=== PATIENT | female | born 1935 | race Caucasian/White ===

== ENCOUNTER 2023-12-25 13:51 | Inpatient (IN) | payer MEDICARE, OTHER ==
[2023-12-25] VITALS (22 sets, daily range): BP systolic 129–180; BP diastolic 82–101; PULSE 109–137; RESP 18–34; TEMP 99.1–100.7; O2SAT 95–100
[~2023-12-25] VITALS: Ht 162.6 cm; Wt 65.8 kg
[~2023-12-25 13:51] MED LIST: ADVAIR 250-501 EACH INH; ALENDRONATE SOD70 MG PO; ASA81 MG PO; CALTRATE-600 W1 EACH PO; PRESERVISION A1 EACH PO; SPIREVA INH; Z.0.AMLODIPINE BESY1 PO; Z.0.ATENOLOL50 MG PO; Z.0.CRESTOR5 MG PO; Z.2.METFORMIN HCL500 PO; Z.2.TRIAMTERENE-HC1 PO
[2023-12-25 14:28] LABS: BASOPHILS % 0.3 % (0.0-1.0); EOSINOPHILS % 0.1 % (0.0-6.0); HEMATOCRIT 33.6 % (34.2-44.1); HEMOGLOBIN 10.1 g/dL (12.0-16.0); LYMPHOCYTES # (AUTO) 1.3 (1.0-3.2); LYMPHOCYTES % 13.5 % (18.0-39.1); MEAN CORPUSCULAR HEMOGLOBIN 26.7 pg (28-32); MEAN CORPUSCULAR HGB CONC 30.1 g/dL (31-35); MEAN CORPUSCULAR VOLUME 88.9 fL (81-99); MONOCYTES # (AUTO) 0.7 (0.2-0.8); MONOCYTES % 7.9 % (4.4-11.3); NEUTROPHILS # (AUTO) 7.3 (2.1-6.9); NEUTROPHILS % 77.9 % (38.7-80.0); PLATELET COUNT 247 x10e3/uL (140-360); RED BLOOD COUNT 3.78 x10e6/uL (3.6-5.1); RED CELL DISTRIBUTION WIDTH 16.4 % (11.7-14.4)
[2023-12-25 14:36] LABS: INR 1.09; PROTHROMBIN TIME 14.7 seconds (11.9-14.5)
[2023-12-25] MEDS: SODIUM CHLORIDE 0.9% 1000ML 1,000 ML IV STA (14:36)
[2023-12-25 14:37] LABS: PARTIAL THROMBOPLASTIN TIME 29.3 seconds (23.8-35.5)
[2023-12-25 14:44] LABS: ALBUMIN 2.8 g/dL (3.5-5.0); ALBUMIN/GLOBULIN RATIO 0.5 (0.8-2.0); ANION GAP 16.1 mmol/L (8-16); BILIRUBIN,TOTAL 0.4 mg/dL (0.2-1.2); CALCIUM 9.4 mg/dL (8.4-10.2); CREATININE, SERUM 1.12 mg/dL (0.57-1.11); MAGNESIUM 1.8 MG/DL (1.3-2.1); POTASSIUM 4.1 mmol/L (3.5-5.1); TOTAL PROTEIN 7.9 g/dL (6.5-8.1)
[2023-12-25 14:49] LABS: TROPONIN I 0.049 ng/mL (0-0.300)
[2023-12-25 16:39] LABS: CLARITY,URINE HAZY (CLEAR); COLOR,URINE YELLOW (YELLOW)
[2023-12-25 16:40] LABS: BILIRUBIN,URINE NEGATIVE (NEGATIVE); GLUCOSE, URINE NEGATIVE (NEGATIVE); KETONES,URINE NEGATIVE (NEGATIVE); LEUKOCYTE ESTERASE ,URINE MODERATE (NEGATIVE); PH,URINE 7 (5 - 7); PROTEIN,URINE DIPSTICK 1+ (NEGATIVE); URINE UROBILINOGEN 0.2 mg/dL (0.2 - 1)
[2023-12-25 16:51] LABS: BACTERIA,URINE MODERATE /HPF; EPITHELIAL CELLS,URINE MODERATE /LPF; NITRITE,URINE POSITIVE (NEGATIVE); RBC,URINE 0-5 /HPF (0-5); TRANSITIONAL EPI CELLS,URINE MANY
[2023-12-25] MEDS ORDERED: ONDANSETRON HCL INJ 2MG/ML 2ML 2 MG/ML VIAL IV PRN (17:30)
[2023-12-25] MEDS: SODIUM CHLORIDE 0.9% 1000ML 1,000 ML IV ONE (17:53)
[2023-12-25 20:31] LABS: INFLUENZAE A&B ANTIGEN (RAPID) POSITIVE FLU B (NEGATIVE); RESPIRATORY SYNC. VIRUS NEGATIVE (NEGATIVE)
[2023-12-25] MEDS ORDERED: LISINOPRIL5 MG PO (21:06)
[2023-12-25] MEDS ORDERED: LEVETIRACETAM500 MG PO (21:06)
[2023-12-25] MEDS ORDERED: METOPROLOL TART50 MG PO (21:06)
[2023-12-25] MEDS ORDERED: FUROSEMIDE40 MG PO (21:06)
[2023-12-25] MEDS ORDERED: PRESERVISION A1 EAC2 PO (21:06)
[2023-12-25] MEDS ORDERED: ROSUVASTATIN CA10 MG PO (21:06)
[2023-12-25] MEDS ORDERED: VESICARE5 MG PO (21:06)
[2023-12-25] MEDS ORDERED: ALBUTEROL/IPRATROPIUM 3 ML NEB NEB PRN (21:45)
[2023-12-25 21:53] LABS: ABG HCO3 28 mmol/L (22-26); ABG PCO2 60 mmHg (35-45); ABG PH 7.27 (7.35-7.45); ABG PO2 213 mmHg (80-105); ABG TCO2 29
[2023-12-25] MEDS: OSELTAMIVIR PHOSPHATE 75 MG CAP PO SCH (22:00)
[2023-12-25] MEDS: FUROSEMIDE INJ 10 MG/ML 4 ML VIAL IV ONE ×2 (22:21)
[2023-12-26] VITALS (43 sets, daily range): BP systolic 100–171; BP diastolic 67–130; PULSE 77–119; RESP 14–27; TEMP 97.6–98; O2SAT 94–100
[2023-12-26 06:42] LABS: ABG HCO3 28 mmol/L (22-26); ABG PCO2 49 mmHg (35-45); ABG PH 7.37 (7.35-7.45); ABG PO2 174 mmHg (80-105); ABG TCO2 30
[2023-12-26 06:51] LABS: BASOPHILS # (AUTO) 0.1 (0.0-0.1); BASOPHILS % 0.4 % (0.0-1.0); EOSINOPHILS % 0.1 % (0.0-6.0); HEMATOCRIT 31.6 % (34.2-44.1); HEMOGLOBIN 9.3 g/dL (12.0-16.0); LYMPHOCYTES # (AUTO) 1.2 (1.0-3.2); LYMPHOCYTES % 8.7 % (18.0-39.1); MEAN CORPUSCULAR HEMOGLOBIN 26.6 pg (28-32); MEAN CORPUSCULAR HGB CONC 29.4 g/dL (31-35); MEAN CORPUSCULAR VOLUME 90.5 fL (81-99); MONOCYTES # (AUTO) 0.8 (0.2-0.8); MONOCYTES % 6.3 % (4.4-11.3); NEUTROPHILS # (AUTO) 11.1 (2.1-6.9); PLATELET COUNT 212 x10e3/uL (140-360); RED BLOOD COUNT 3.49 x10e6/uL (3.6-5.1); RED CELL DISTRIBUTION WIDTH 16.2 % (11.7-14.4); WHITE BLOOD COUNT 13.26 x10e3/uL (4.8-10.8)
[2023-12-26] MEDS ORDERED: LEVETIRACETAM500 MG PO (06:58)
[2023-12-26] MEDS: SALMETEROL XINAF/FLUTICASONE 250/50 MCG INHALER INH SCH (07:01)
[2023-12-26 07:28] LABS: ALBUMIN 2.4 g/dL (3.5-5.0); ALBUMIN/GLOBULIN RATIO 0.5 (0.8-2.0); ANION GAP 12.9 mmol/L (8-16); BILIRUBIN,TOTAL 0.4 mg/dL (0.2-1.2); CALCIUM 8.8 mg/dL (8.4-10.2); CREATININE, SERUM 0.89 mg/dL (0.57-1.11); POTASSIUM 3.9 mmol/L (3.5-5.1); TOTAL PROTEIN 7.1 g/dL (6.5-8.1)
[2023-12-26 07:51] LABS: TROPONIN I 0.148 ng/mL (0-0.300)
[2023-12-26] MEDS ORDERED: GUAIFENESIN 200 MG/10 ML UDC PO PRN (08:15)
[2023-12-26] MEDS: METRONIDAZOLE 500MG/NS 100ML 100 ML IV SCH (08:26)
[2023-12-26] MEDS: ENOXAPARIN 30 MG/0.3 ML SYR SC SCH (08:27)
[2023-12-26] MEDS ORDERED: SODIUM CHLORIDE 0.9% 250ML 250 ML ONE (08:30)
[2023-12-26] MEDS: ALBUTEROL/IPRATROPIUM 3 ML NEB NEB SCH (08:34)
[2023-12-26] MEDS: AMLODIPINE BESYLATE 10 MG TAB PO SCH (09:00)
[2023-12-26] MEDS ORDERED: CRESTOR 10MG PO SCH (09:00)
[2023-12-26] MEDS: ATENOLOL 50 MG TAB PO SCH (09:00)
[2023-12-26 09:15] LABS: BAND NEUTROPHILS % (MANUAL) 2 %; LYMPHOCYTES % (MANUAL) 4 % (19-48); MONOCYTES % (MANUAL) 4 % (3.4-9.0); NEUTROPHILS % (MANUAL) 88 % (40-74); PLATELET ESTIMATE ADEQUATE; PLATELET MORPHOLOGY COMMENT NORMAL; RBC MORPHOLOGY COMMENT NORMAL; REACTIVE LYMPHOCYTES 2
[2023-12-26] MEDS: NYSTATIN 15 GM POWDER UD BTL TOP SCH (12:40)
[2023-12-26] MEDS: MUPIROCIN 2% OINT 22 GM TUBE TOP SCH (12:41)
[2023-12-26 15:37] LABS: TROPONIN I 0.103 ng/mL (0-0.300)
[2023-12-26] MEDS: LABETALOL HCL 5 MG/ML 20ML VIAL IV PRN (16:07)
[2023-12-26] MEDS ORDERED: NYSTATIN 15 GM POWDER UD BTL TOP SCH (17:00)
[2023-12-27] VITALS (23 sets, daily range): BP systolic 99–168; BP diastolic 59–99; PULSE 92–116; RESP 14–23; TEMP 98–98.5; O2SAT 94–99
[2023-12-27 06:56] LABS: BASOPHILS % 0.3 % (0.0-1.0); EOSINOPHILS % 0.1 % (0.0-6.0); HEMATOCRIT 31.7 % (34.2-44.1); HEMOGLOBIN 9.2 g/dL (12.0-16.0); LYMPHOCYTES # (AUTO) 1.1 (1.0-3.2); LYMPHOCYTES % 10.9 % (18.0-39.1); MEAN CORPUSCULAR HEMOGLOBIN 26.5 pg (28-32); MEAN CORPUSCULAR VOLUME 91.4 fL (81-99); MONOCYTES # (AUTO) 0.5 (0.2-0.8); MONOCYTES % 4.9 % (4.4-11.3); NEUTROPHILS # (AUTO) 8.1 (2.1-6.9); NEUTROPHILS % 83.4 % (38.7-80.0); PLATELET COUNT 219 x10e3/uL (140-360); RED BLOOD COUNT 3.47 x10e6/uL (3.6-5.1); RED CELL DISTRIBUTION WIDTH 16.1 % (11.7-14.4); WHITE BLOOD COUNT 9.69 x10e3/uL (4.8-10.8)
[2023-12-27 07:21] LABS: ALBUMIN 2.2 g/dL (3.5-5.0); ALBUMIN/GLOBULIN RATIO 0.4 (0.8-2.0); ANION GAP 12.7 mmol/L (8-16); BILIRUBIN,TOTAL 0.3 mg/dL (0.2-1.2); CALCIUM 9.1 mg/dL (8.4-10.2); CREATININE, SERUM 0.84 mg/dL (0.57-1.11); POTASSIUM 3.7 mmol/L (3.5-5.1); TOTAL PROTEIN 7.1 g/dL (6.5-8.1)
[2023-12-27 08:48] LABS: LYMPHOCYTES % (MANUAL) 14 % (19-48); MONOCYTES % (MANUAL) 1 % (3.4-9.0); NEUTROPHILS % (MANUAL) 85 % (40-74)
[2023-12-27 08:49] LABS: PLATELET ESTIMATE ADEQUATE; PLATELET MORPHOLOGY COMMENT NORMAL; RBC MORPHOLOGY COMMENT NORMAL
[2023-12-27] MEDS: Vancomycin IV 1 GM in SODIUM CHLORIDE 0.9% 250ML 250 ML IV SCH (18:15)
[2023-12-27] MEDS ORDERED: Vancomycin IV 1 GM VIAL ONE (18:18)
[2023-12-28] VITALS (57 sets, daily range): BP systolic 97–172; BP diastolic 74–145; PULSE 62–143; RESP 10–35; TEMP 96.7–98; O2SAT 76–100
[2023-12-28] MEDS ORDERED: AMIODARONE 900MG 900 MG in Premix Bag 1 BAG IV ONE (00:15)
[2023-12-28] MEDS: AMIODARONE HCL 150 MG/100 ML BAG IV ONE (00:28)
[2023-12-28] MEDS: AMIODARONE 900MG 500 ML IV ONE (01:18)
[2023-12-28] MEDS: AMIODARONE 900MG 900 MG in Premix Bag 1 BAG IV ONE (01:19)
[2023-12-28] MEDS: LEVALBUTEROL HCL SOLN NEBU 0.63 MG/3 ML NEB INH PRN (08:00)
[2023-12-28 08:42] LABS: ABG HCO3 29 mmol/L (22-26); ABG PCO2 65 mmHg (35-45); ABG PH 7.26 (7.35-7.45); ABG PO2 319 mmHg (80-105); ABG TCO2 31
[2023-12-28] MEDS: FUROSEMIDE INJ 10 MG/ML 2 ML VIAL IV ONE (08:45)
[2023-12-28] MEDS: METOPROLOL TARTRATE INJ 1 MG/ML VIAL IV PRN (16:28)
[2023-12-28] MEDS: ENOXAPARIN SOD INJ 60 MG/0.6 ML SYR SC SCH (20:47)
[2023-12-29] VITALS (70 sets, daily range): BP systolic 101–183; BP diastolic 66–158; PULSE 48–156; RESP 12–33; TEMP 97.3–98.1; O2SAT 93–100
[2023-12-29] MEDS: AMIODARONE 900MG 500 ML IV ONE (00:16)
[2023-12-29 06:54] LABS: BASOPHILS % 0.2 % (0.0-1.0); EOSINOPHILS % 0.1 % (0.0-6.0); HEMOGLOBIN 8.3 g/dL (12.0-16.0); LYMPHOCYTES # (AUTO) 0.9 (1.0-3.2); LYMPHOCYTES % 11.6 % (18.0-39.1); MEAN CORPUSCULAR HEMOGLOBIN 26.7 pg (28-32); MEAN CORPUSCULAR HGB CONC 28.6 g/dL (31-35); MEAN CORPUSCULAR VOLUME 93.2 fL (81-99); MONOCYTES # (AUTO) 0.4 (0.2-0.8); MONOCYTES % 5.3 % (4.4-11.3); NEUTROPHILS # (AUTO) 6.7 (2.1-6.9); NEUTROPHILS % 81.8 % (38.7-80.0); PLATELET COUNT 207 x10e3/uL (140-360); RED BLOOD COUNT 3.11 x10e6/uL (3.6-5.1); RED CELL DISTRIBUTION WIDTH 16.5 % (11.7-14.4); WHITE BLOOD COUNT 8.13 x10e3/uL (4.8-10.8)
[2023-12-29 07:18] LABS: ALBUMIN 2.1 g/dL (3.5-5.0); ALBUMIN/GLOBULIN RATIO 0.5 (0.8-2.0); ANION GAP 15.5 mmol/L (8-16); CALCIUM 8.6 mg/dL (8.4-10.2); CREATININE, SERUM 0.78 mg/dL (0.57-1.11); POTASSIUM 3.5 mmol/L (3.5-5.1); TOTAL PROTEIN 6.7 g/dL (6.5-8.1)
[2023-12-29 08:27] LABS: ABG HCO3 28 mmol/L (22-26); ABG PCO2 48 mmHg (35-45); ABG PH 7.37 (7.35-7.45); ABG PO2 213 mmHg (80-105); ABG TCO2 29
[2023-12-29] MEDS: CEFTRIAXONE 2 GM in SODIUM CHLORIDE 0.9% 100 ML IV SCH (08:41)
[2023-12-29 11:14] LABS: LYMPHOCYTES % (MANUAL) 21 % (19-48); MONOCYTES % (MANUAL) 2 % (3.4-9.0); NEUTROPHILS % (MANUAL) 76 % (40-74); PLATELET ESTIMATE ADEQUATE; PLATELET MORPHOLOGY COMMENT NORMAL; REACTIVE LYMPHOCYTES 1
[2023-12-29] MEDS: SODIUM CHLORIDE 0.9% 250ML 250 ML ONE (15:10)
[2023-12-30] VITALS (35 sets, daily range): BP systolic 132–176; BP diastolic 61–133; PULSE 78–118; RESP 8–28; TEMP 97.1–98.5; O2SAT 94–100
[2023-12-30 09:25] LABS: FOLATE 14.3 ng/mL (7.0-15.4)
[2023-12-30] MEDS: AMIODARONE 900MG 900 MG in Premix Bag 1 BAG IV SCH (17:54)
[2023-12-31] VITALS (27 sets, daily range): BP systolic 140–178; BP diastolic 70–133; PULSE 74–104; RESP 10–27; TEMP 98.4–98.6; O2SAT 93–100
[2023-12-31 06:37] LABS: BASOPHILS % 0.2 % (0.0-1.0); EOSINOPHILS % 0.3 % (0.0-6.0); HEMATOCRIT 30.8 % (34.2-44.1); HEMOGLOBIN 8.8 g/dL (12.0-16.0); LYMPHOCYTES % 15.9 % (18.0-39.1); MEAN CORPUSCULAR HEMOGLOBIN 26.9 pg (28-32); MEAN CORPUSCULAR HGB CONC 28.6 g/dL (31-35); MEAN CORPUSCULAR VOLUME 94.2 fL (81-99); MONOCYTES # (AUTO) 0.4 (0.2-0.8); MONOCYTES % 6.2 % (4.4-11.3); NEUTROPHILS # (AUTO) 4.7 (2.1-6.9); NEUTROPHILS % 76.4 % (38.7-80.0); PLATELET COUNT 220 x10e3/uL (140-360); RED BLOOD COUNT 3.27 x10e6/uL (3.6-5.1); WHITE BLOOD COUNT 6.11 x10e3/uL (4.8-10.8)
[2023-12-31 07:06] LABS: ALBUMIN 2.2 g/dL (3.5-5.0); ALBUMIN/GLOBULIN RATIO 0.5 (0.8-2.0); ANION GAP 16.5 mmol/L (8-16); BILIRUBIN,TOTAL 0.2 mg/dL (0.2-1.2); CALCIUM 9.1 mg/dL (8.4-10.2); CREATININE, SERUM 0.92 mg/dL (0.57-1.11); POTASSIUM 3.5 mmol/L (3.5-5.1); TOTAL PROTEIN 6.9 g/dL (6.5-8.1)
[2023-12-31] MEDS: METOPROLOL TARTRATE INJ 1 MG/ML VIAL IV SCH (18:00)
[2024-01-01] VITALS (24 sets, daily range): BP systolic 126–177; BP diastolic 72–110; PULSE 66–128; RESP 10–32; TEMP 98–98.6; O2SAT 98–100
[2024-01-01] MEDS: D5.45%NS/KCL 20MEQ 1,000 ML IV SCH (00:18)
[2024-01-01 07:00] LABS: BASOPHILS % 0.2 % (0.0-1.0); EOSINOPHILS % 0.2 % (0.0-6.0); HEMATOCRIT 32.7 % (34.2-44.1); HEMOGLOBIN 9.6 g/dL (12.0-16.0); LYMPHOCYTES # (AUTO) 0.8 (1.0-3.2); LYMPHOCYTES % 15.7 % (18.0-39.1); MEAN CORPUSCULAR HEMOGLOBIN 26.7 pg (28-32); MEAN CORPUSCULAR HGB CONC 29.4 g/dL (31-35); MEAN CORPUSCULAR VOLUME 91.1 fL (81-99); MONOCYTES # (AUTO) 0.4 (0.2-0.8); NEUTROPHILS # (AUTO) 3.8 (2.1-6.9); NEUTROPHILS % 74.7 % (38.7-80.0); PLATELET COUNT 206 x10e3/uL (140-360); RED BLOOD COUNT 3.59 x10e6/uL (3.6-5.1); WHITE BLOOD COUNT 5.02 x10e3/uL (4.8-10.8)
[2024-01-01 07:20] LABS: ANION GAP 14.4 mmol/L (8-16); CALCIUM 9.1 mg/dL (8.4-10.2); CREATININE, SERUM 0.88 mg/dL (0.57-1.11)
[2024-01-01 07:25] LABS: POTASSIUM 3.4 mmol/L (3.5-5.1)
[2024-01-01] MEDS: HYDRALAZINE HCL 20 MG/ML VIAL IV PRN (08:36)
[2024-01-01] MEDS: ALTEPLASE RECOMBINANT 2 MG/2 ML VIAL IV PRN (15:00)
[2024-01-02] VITALS (25 sets, daily range): BP systolic 125–175; BP diastolic 69–142; PULSE 53–123; RESP 11–24; TEMP 98–98.6; O2SAT 96–100
[2024-01-02] MEDS ORDERED: LORAZEPAM INJ 2 MG/ML VIAL IV PRN (18:00)
[2024-01-02] MEDS ORDERED: KETOROLAC TROMETHAMINE 30 MG/ML VIAL IV PRN (18:00)
[2024-01-02] MEDS ORDERED: ENOXAPARIN SOD INJ 60 MG/0.6 ML SYR SC SCH (21:00)
[2024-01-03] VITALS (9 sets, daily range): BP systolic 153–185; BP diastolic 102–123; PULSE 62–112; RESP 15–20; TEMP 97.9–98.2; O2SAT 94–98
== END 2024-01-03 18:15 | disposition hospice, home (50) | DRG 871 ==
LOC: ER 14:05 → ERHOLD 17:35 → ICU 20:14 → MED/SURG2 01-02 18:50
PROVIDERS: ADMIT Internal Medicine; ATTEND Internal Medicine
PROC: 5A09357 Assistance with Respiratory Ventilation, Less than 24 Consecutive Hours, Continuous Positive Airway Pressure (ICD-10-PCS; principal; 2023-12-25)
PROC: 4A133R1 Monitoring of Arterial Saturation, Peripheral, Percutaneous Approach (ICD-10-PCS; 2023-12-25)
PROC: 3E0333Z Introduction of Anti-inflammatory into Peripheral Vein, Percutaneous Approach (ICD-10-PCS; 2023-12-25)
PROC: 02HV33Z Insertion of Infusion Device into Superior Vena Cava, Percutaneous Approach (ICD-10-PCS; 2023-12-26)
PROC: 5A09457 Assistance with Respiratory Ventilation, 24-96 Consecutive Hours, Continuous Positive Airway Pressure (ICD-10-PCS; 2023-12-28)
DX: A41.89 Other specified sepsis (principal); G93.41 Metabolic encephalopathy; J96.02 Acute respiratory failure with hypercapnia; J96.01 Acute respiratory failure with hypoxia; J69.0 Pneumonitis due to inhalation of food and vomit; J10.08 Influenza due to other identified influenza virus with other specified pneumonia; I13.0 Hypertensive heart and chronic kidney disease with heart failure and stage 1 through stage 4 chronic kidney disease, or unspecified chronic kidney disease; I50.33 Acute on chronic diastolic (congestive) heart failure; I38 Endocarditis, valve unspecified; E87.29 Other acidosis; N39.0 Urinary tract infection, site not specified; Z51.5 Encounter for palliative care; Z66 Do not resuscitate; R65.20 Severe sepsis without septic shock; Z11.52 Encounter for screening for COVID-19; R13.12 Dysphagia, oropharyngeal phase; N18.9 Chronic kidney disease, unspecified; D63.1 Anemia in chronic kidney disease; I48.0 Paroxysmal atrial fibrillation; I25.10 Atherosclerotic heart disease of native coronary artery without angina pectoris; E78.5 Hyperlipidemia, unspecified; R54 Age-related physical debility; B96.20 Unspecified Escherichia coli [E. coli] as the cause of diseases classified elsewhere; G40.909 Epilepsy, unspecified, not intractable, without status epilepticus; Z79.51 Long term (current) use of inhaled steroids; Z79.84 Long term (current) use of oral hypoglycemic drugs; Z79.82 Long term (current) use of aspirin; Z90.710 Acquired absence of both cervix and uterus; Z95.2 Presence of prosthetic heart valve; Z88.0 Allergy status to penicillin; Z88.2 Allergy status to sulfonamides; Z88.5 Allergy status to narcotic agent; Z88.1 Allergy status to other antibiotic agents
CPT/HCPCS: 31720; 36415; 36569; 36600; 71045; 71250; 74230; 80048; 80053; 81001; 82550; 82607; 82746; 82805; 83036; 83540; 83605; 83735; 83880; 84466; 84484; 85025; 85610; 85730; 87040; 87070; 87071; 87086; 87186; 87205; 87400; 87420; 93005; 93306; 94640; 94660; 94664; 94799; 99252; 99284; J0360; J0692; J0696; J1650; J1940; J2470; J2997; J7030; J7050; U0002